=== PATIENT | female | born 1955 | race African-American/Black ===

== ENCOUNTER → 2016-09-04 | Outpatient (CLI) | payer BC ==
[~2016-09-04] MED LIST: FLEXERIL10 M1 PO
--- NOTE | ~2016-09-04 | CT138 ---
[facility] A Service of [facility] RADIOLOGY TEXT RESULTS PATIENT: TAIWO LI LOCATION: [facility] : 57 UNIT #: [id number] AGE: [address]: Susan Islas MD SEX: F ORDER DR: [id number] [facility]. [place], [place] [address] [id number] O MR#: [id number] [facility] #: [id number] NAME: TAIWO LI : 1955 SEX: F STUDY DATE/TIME: 09/04/2016 9:02 UNIT: [facility] ROOM: STUDY DESCRIPTION: CT Lung screening initial Attending Physician: Susan Islas M.D. Referring Physician: Susan Islas M.D. Ordering Physician: Susan Islas M.D. Primary Care Physician: Susan Islas M.D. MEDICAL IMAGING REPORT This report is preliminary unless electronic signature is present EXAM CT chest without contrast. HISTORY Significant past smoking history with increased clinical risk for lung cancer. Lung cancer screening. 40 pack year history. Patient currently complains of cough. TECHNIQUE Axial imaging was obtained through the chest without contrast and evaluated at lung and mediastinal windows. Low-dose screening technique was utilized. This CT exam was performed with one or more of the following radiation dose reduction techniques: automatic exposure control, adjustment of mA and/or kV according to patient size, and iterative reconstruction. COMPARISON CT of the chest is available from 2005. FINDINGS Chest images at mediastinal window show atherosclerotic calcification of the great vessels and aorta. No dilatation of the thoracic aorta is seen. Coronary artery calcifications are seen extensively. There is no evidence of pleural or pericardial fluid and no adenopathy is noted. Lung window imaging shows emphysema. There is a 3 mm subpleural nodule left upper lobe laterally. No other nodules are seen. IMPRESSION 1. 3 mm left upper lobe nodule. Low likelihood of becoming malignant. Lung-RADS category II. I recommend follow-up screening in 1 year. [facility] A Service of [facility] RADIOLOGY TEXT RESULTS PATIENT: TAIWO LI LOCATION: [facility] : 57 UNIT #: [id number] AGE: [address]: Susan Islas MD SEX: F ORDER DR: Dictated by... Isaac Villanueva M.D. THIS IS AN ELECTRONICALLY VERIFIED REPORT Isaac Villanueva M.D. at 09/06/2016 9:58 AM ANDRESSA/marysol TD: 09/05/2016 18:54 JOB #: [id number] MEDICAL IMAGING REPORT Page 1 of 1 COPY
== END | disposition home or self-care (01) ==
LOC: CCAT 08:27
DX: F17.210 Nicotine dependence, cigarettes, uncomplicated (principal); R91.1 Solitary pulmonary nodule
CPT/HCPCS: G0297